=== PATIENT | male | born 1985 | race Hispanic/Latino ===

== ENCOUNTER → 2018-05-03 | Outpatient (CLI) | payer OTHER ==
[~2018-05-03] MED LIST: IOHEXOL-350 75 ML VIAL IV ONE
== END | disposition home or self-care (01) ==
LOC: RAH 13:04 → EEVIPCON 13:04
PROVIDERS: ATTEND Internal Medicine
DX: R18.8 Other ascites (principal); Z90.89 Acquired absence of other organs
CPT/HCPCS: 74177; Q9967

== ENCOUNTER → 2018-05-24 | Outpatient (CLI) | payer OTHER | END | disposition home or self-care (01) | LOC: EEVIPCON 07:29 → RAH 07:29 | PROVIDERS: ATTEND Internal Medicine | DX: N32.89 Other specified disorders of bladder (principal); M47.815 Spondylosis without myelopathy or radiculopathy, thoracolumbar region; Z90.89 Acquired absence of other organs | CPT/HCPCS: 74176 ==